=== PATIENT | male | born 2000 | race Caucasian/White ===

== ENCOUNTER 2019-05-16 18:39 | Emergency (ER) | payer OTHER ==
[~2019-05-16] VITALS: Ht 182.9 cm; Wt 136.1 kg
[2019-05-16] MEDS ORDERED: NOHOMEMEDICATIONS (18:49)
[2019-05-16] MEDS ORDERED: ACETAMINOPHEN-1 EAC1 PO (20:21)
[2019-05-16] MEDS ORDERED: MOBIC15 MG PO (20:21)
[2019-05-16 20:59] VITALS: BP 139/49
== END 2019-05-16 21:00 | disposition home or self-care (01) ==
LOC: M.ERS 18:39
DX: S82.292A Other fracture of shaft of left tibia, initial encounter for closed fracture (principal); W01.0XXA Fall on same level from slipping, tripping and stumbling without subsequent striking against object, initial encounter; Y92.89 Other specified places as the place of occurrence of the external cause; Y93.89 Activity, other specified; Y99.8 Other external cause status